=== PATIENT | female | born 1955 | race Caucasian/White ===

== ENCOUNTER → 2017-08-26 | Outpatient (CLI) | payer OTHER | LOC: BRMIMAGING 15:31 | PROVIDERS: ATTEND Hospitalist | DX: J18.1 Lobar pneumonia, unspecified organism (principal); M41.85 Other forms of scoliosis, thoracolumbar region | CPT/HCPCS: 71046-PO ==

== ENCOUNTER → 2017-12-03 | Outpatient (CLI) | payer OTHER | LOC: BRMIMAGING 14:43 | PROVIDERS: ATTEND Hospitalist | DX: M24.841 Other specific joint derangements of right hand, not elsewhere classified (principal) | CPT/HCPCS: 73130-PO ==

== ENCOUNTER → 2019-01-18 | Outpatient (CLI) | payer OTHER | LOC: BRMIMAGING 15:58 ==